=== PATIENT | male | born 1990 | race Two or more races ===

== ENCOUNTER 2022-04-30 20:06 | Inpatient (IN) | payer MEDICAID ==
[~2022-04-30] VITALS: Ht 167.6 cm; Wt 96.2 kg
[2022-04-30] MEDS ORDERED: cloNIDine HCL 0.1 MG TAB PO ONE (21:00)
[2022-04-30 21:36] LABS: Basophils # (auto) 0.1 10 ^3/uL (0-0.2); Basophils % (auto) 0.5 % (0.0-2.0); Eosinophils # (auto) 0.3 10 ^3/uL (0-0.8); Eosinophils % (auto) 2.1 % (0.0-7.0); Hematocrit 45.1 % (41.0-53.0); Hemoglobin 15.5 g/dL (13.5-17.5); Lymphocytes # (auto) 0.7 10 ^3/uL (0.4-5.4); Lymphocytes % (auto) 5.7 % (10.0-50.0); Mean Corpuscular Hemoglobin 30.1 pg (28.0-32.0); Mean Corpuscular Hgb Conc. 34.4 g/dL (32.0-36.0); Mean Corpuscular Volume 87.6 fL (80.0-100.0); Monocytes # (auto) 0.5 10 ^3/uL (0-1.3); Monocytes % (auto) 4.3 % (0.0-12.0); Neutrophils # (auto) 10.8 10 ^3/uL (1.6-8.6); Neutrophils % (auto) 87.4 % (37.0-80.0); Nucleated Red Blood Cells % 0.2 %; Red Blood Cells 5.15 10^6/uL (4.5-5.90); Red Cell Distribution Width 14.2 % (11.8-14.3); White Blood Cell 12.3 10^3/uL (4.4-10.8)
[2022-04-30 21:53] LABS: Albumin 3.9 g/dL (3.4-5.0); BUN/Creatinine Ratio 11.7; Calcium 8.8 mg/dL (8.5-10.1); Potassium 3.8 mmol/L (3.5-5.1)
[2022-04-30 22:03] LABS: Bilirubin, Total 0.6 mg/dL (0.2-1.0); Total Protein 7.6 g/dL (6.4-8.2)
[2022-05-01] MEDS ORDERED: amLODIPine BESYLATE 5 MG TAB PO ONE (06:00)
[2022-05-01] MEDS ORDERED: cefTRIAXone 1GM/50ML D5W 50 ML IV ONE (09:15)
[2022-05-01] MEDS: ENOXAPARIN SOD 40 MG/0.4 ML SYRINGE SC SCH (10:00)
[2022-05-01 10:15] LABS: Cholesterol 181 mg/dL (< 200); HDL Cholesterol 38 mg/dL (40-59); LDL Cholesterol 117 mg/dL (< 100); Triglycerides 192 mg/dL (< 150)
[2022-05-01 11:50] LABS: Urine Specific Gravity 1.013 (1.001-1.035)
[2022-05-01 11:51] LABS: Urine Blood Negative /uL (Negative)
[2022-05-01] MEDS: ZINC SULFATE 220mg CAP or TAB PO SCH (15:55)
[2022-05-01] MEDS: ASCORBIC ACID 500 MG TAB PO SCH ×2 (15:56→22:00)
[2022-05-01] MEDS: MULTIPLE VITAMIN TAB PO SCH (15:56)
[2022-05-01] MEDS: SODIUM CHLORIDE 0.9% 1,000 ML IV SCH (16:16)
[2022-05-02 00:34] VITALS: BP 159/97
[2022-05-02] MEDS: hydrALAZINE HCL 20 MG/ML VL IV PRN ×3 (01:27→22:53)
[2022-05-02] MEDS: SODIUM CHLORIDE 0.9% 1,000 ML IV SCH ×2 (01:55→22:53)
[2022-05-02] MEDS ORDERED: CAR125T OR (02:03)
[2022-05-02] MEDS ORDERED: ATOR40TA52 PO (02:05)
[2022-05-02] MEDS ORDERED: LOSA100T33 PO (02:06)
[2022-05-02 05:00] VITALS: BP 141/87
[2022-05-02 05:21] LABS: Basophils # (auto) 0 10 ^3/uL (0-0.2); Basophils % (auto) 0.3 % (0.0-2.0); Eosinophils # (auto) 0.4 10 ^3/uL (0-0.8); Eosinophils % (auto) 6.5 % (0.0-7.0); Hematocrit 42.1 % (41.0-53.0); Hemoglobin 14.2 g/dL (13.5-17.5); Lymphocytes # (auto) 1.6 10 ^3/uL (0.4-5.4); Lymphocytes % (auto) 28.3 % (10.0-50.0); Mean Corpuscular Hemoglobin 29.6 pg (28.0-32.0); Mean Corpuscular Hgb Conc. 33.7 g/dL (32.0-36.0); Mean Corpuscular Volume 87.9 fL (80.0-100.0); Monocytes # (auto) 0.6 10 ^3/uL (0-1.3); Monocytes % (auto) 10.7 % (0.0-12.0); Neutrophils # (auto) 3.1 10 ^3/uL (1.6-8.6); Neutrophils % (auto) 54.2 % (37.0-80.0); Nucleated Red Blood Cells % 0.1 %; Red Blood Cells 4.78 10^6/uL (4.5-5.90); Red Cell Distribution Width 14.2 % (11.8-14.3); White Blood Cell 5.8 10^3/uL (4.4-10.8)
[2022-05-02 05:40] LABS: Albumin 3.3 g/dL (3.4-5.0); Calcium 8.5 mg/dL (8.5-10.1); Potassium 3.8 mmol/L (3.5-5.1)
[2022-05-02 05:43] LABS: Bilirubin, Total 0.6 mg/dL (0.2-1.0); Total Protein 6.6 g/dL (6.4-8.2)
[2022-05-02] MEDS: cefTRIAXone 1GM/50ML D5W 50 ML IV SCH (08:56)
[2022-05-02] MEDS: MULTIPLE VITAMIN TAB PO SCH (08:57)
[2022-05-02] MEDS: ZINC SULFATE 220mg CAP or TAB PO SCH (08:57)
[2022-05-02] MEDS: ASCORBIC ACID 500 MG TAB PO SCH ×2 (08:57→21:51)
[2022-05-02] MEDS: amLODIPine BESYLATE 5 MG TAB PO SCH (08:57)
[2022-05-02] MEDS: ENOXAPARIN SOD 40 MG/0.4 ML SYRINGE SC SCH (08:57)
[2022-05-02 09:00] VITALS: BP 136/73
[2022-05-02 13:00] VITALS: BP 163/99
[2022-05-02 17:00] VITALS: BP 121/77
[2022-05-02] MEDS: ACETAMINOPHEN 325 MG TAB PO PRN (18:51)
[2022-05-02 22:00] VITALS: BP 167/92
[2022-05-03 05:00] VITALS: BP 125/79
[2022-05-03 09:00] VITALS: BP 158/97
[2022-05-03] MEDS: cefTRIAXone 1GM/50ML D5W 50 ML IV SCH (10:56)
[2022-05-03] MEDS: ENOXAPARIN SOD 40 MG/0.4 ML SYRINGE SC SCH (10:56)
[2022-05-03] MEDS: ASCORBIC ACID 500 MG TAB PO SCH (10:58)
[2022-05-03] MEDS: MULTIPLE VITAMIN TAB PO SCH (10:58)
[2022-05-03] MEDS: amLODIPine BESYLATE 5 MG TAB PO SCH (10:58)
[2022-05-03] MEDS: ZINC SULFATE 220mg CAP or TAB PO SCH (10:59)
[2022-05-03] MEDS: ACETAMINOPHEN 325 MG TAB PO PRN (11:00)
[2022-05-03] MEDS: SODIUM CHLORIDE 0.9% 1,000 ML IV SCH (11:15)
[2022-05-03 12:41] VITALS: BP 146/95
[2022-05-03] MEDS ORDERED: ATOR40TA52 PO (13:58)
[2022-05-03] MEDS ORDERED: LOSA100T33 PO (13:58)
[2022-05-03] MEDS ORDERED: AML5T PO (13:58)
[2022-05-03] MEDS ORDERED: CAR125T PO (13:58)
[2022-05-03 17:00] VITALS: BP 149/88
[2022-05-03 17:30] VITALS: BP 149/88
[2022-05-04] MEDS ORDERED: INFLUENZA QUAD 2022-2023 0.5 ML SYRG IM ONE (08:00)
== END 2022-05-03 18:48 | disposition home or self-care (01) | DRG 199 ==
LOC: ER 20:08 → OVERFLOW 05-01 09:06 → EAST 05-01 23:40
PROVIDERS: ADMIT Nurse Practitioner Family; ATTEND Internal Medicine
DX: I16.0 Hypertensive urgency (principal); U07.1 COVID-19; N17.9 Acute kidney failure, unspecified; D72.829 Elevated white blood cell count, unspecified; E66.01 Morbid (severe) obesity due to excess calories; E78.5 Hyperlipidemia, unspecified; I10 Essential (primary) hypertension; R73.9 Hyperglycemia, unspecified; Z68.34 Body mass index [BMI] 34.0-34.9, adult
CPT/HCPCS: 36415; 80053; 80061; 81003; 83036; 84443; 84484; 85025; 87040; 87426; 93005; G0378; J0696